=== PATIENT | male | born 1970 | race Caucasian/White ===

== ENCOUNTER 2017-04-27 15:12 | Outpatient (CLI) ==
--- NOTE | 2017-04-27 15:47 | DI ---
EXAM: Fourth digit of the left hand three views HISTORY: Injury, pain FINDINGS: Bone and joint structures appear normal. There is no displaced fracture or joint disloca tion seen. General bone density and soft tissues are within normal limits. IMPRESSION: Findings within normal limits.
== END 2017-04-27 15:13 | disposition home or self-care (01) ==
LOC: RAD 15:12
PROVIDERS: ATTEND Family Medicine
DX: S66.912D Strain of unspecified muscle, fascia and tendon at wrist and hand level, left hand, subsequent encounter (principal)

== ENCOUNTER 2017-06-14 11:43 | Emergency (ER) ==
[2017-06-14 11:50] VITALS: BP 169/111; TEMP 97.8; BMI 50.1
--- NOTE | 2017-06-14 12:24 | DI ---
Exam: Right knee four view. HISTORY: Injury. Findings: Four images of the right knee are submitted. These demonstrate no acute fracture or disl ocation. There is no osseous erosion or radiodense foreign body. There is mild narrowing of the med ial compartment. There is minimal patellar spurring. There is no suprapatellar effusion. There is no focal soft tissue swelling. Impressions: Mild degenerative findings in the right knee with no acute fracture or dislocation.
--- NOTE | 2017-06-14 12:29 | ED.PDOC ---
General ED Provider: Dr. LIZ LINDQUIST-ER Chief Complaint: Knee Pain/Injury Stated Complaint: i twisted my knee yesterday and i felt a pop Time Seen by Physician: 11:50 Mode of Arrival: Walk-In Information Source: Patient Exam Limitations: No limitations Primary Care Provider: LIZ LINDQUIST Nursing and Triage Documentation Reviewed and Agree: Yes Musculoskeletal Complaint Exam - Knee Pain Complaint/Exam Mechanism of Injury: Reports: Trauma Onset/Duration: 24hrs Symptoms Are: Still present Onset of Pain: Reports: Immediate Initial Severity: Mild Current Severity: Moderate Location: Reports: Discrete Character: Reports: Dull, Aching, Stiffness Aggravating: Reports: Movement, Weight bearing, Prolonged standing, Stairs Associated Signs and Symptoms: Denies: Swelling, Redness, Bruising, Fever, Weakness, Numbness, Tingling Able to Bear Weight: Yes Septic Arthritis Risk Factors: Reports: None Gout Risk Factors: Reports: >40 years old, Male Knee Findings: Present: Ligamentous instability, Tenderness, Limited range of motion Tenderness: Present: Joint Brock Test Positive: No Lida Test Positive: No Differential Diagnoses: Internal Derangement, Sprain, Strain Review of Systems - Review Of Systems Constitutional: Reports: No symptoms Eyes: Reports: No symptoms Ears, Nose, Mouth, Throat: Reports: No symptoms Respiratory: Reports: No symptoms Cardiac: Reports: No symptoms GI: Reports: No symptoms : Reports: No symptoms Musculoskeletal: Reports: Joint pain Skin: Reports: No symptoms Neurological: Reports: No symptoms Endocrine: Reports: No symptoms Hematologic/Lymphatic: Reports: No symptoms All Other Systems: Reviewed and Negative Past Medical History - Past Medical History Endocrine: Reports: Unknown Cardiovascular: Reports: Unknown Respiratory: Reports: Unknown Hematological: Reports: Unknown Gastrointestinal: Reports: Unknown Genitourinary: Reports: Unknown Neuro/Psych: Reports: Unknown Musculoskeletal: Reports: Unknown Cancer: Reports: Unknown - Surgical History General Surgical History: Reports: Unknown - Family History Family History: Reports: Unknown - Social History Smoking Status: Former smoker Hx Substance Use: No Alcohol Screening: Occasionally Lives: With family Physical Exam - Physical Exam Appearance: Well-appearing, No pain distress, Well-nourished Eyes: KRISTEN, EOMI, Conjunctiva clear ENT: Ears normal, Nose normal, Oropharynx normal Neck: Supple Respiratory: Airway patent, Breath sounds clear, Breath sounds equal, Respirations nonlabored Cardiovascular: RRR, Pulses normal, No rub, No murmur GI/: Soft, Nontender, No masses, Bowel sounds normal, No Organomegaly Musculoskeletal: Limited ROM Skin: Warm, Dry, Normal color Neurological: Sensation intact, Motor intact, Reflexes intact, Cranial nerves intact, Alert, Oriented Psychiatric: Affect appropriate, Mood appropriate Interpretation - Radiology Interpretation Radiology Interpretation By: ED Physician Radiology Results: Negative Critical Care Note - Critical Care Note Total Time (mins): 0 Course - Course Orders, Labs, Meds: Orders Category Date Time Status BRITTNEY [ED BRITTNEY WRAP] .ONCE EMERGENCY 06/14/17 12:26 Active KNEE, RIGHT 4 VIEWS Stat RADS 06/14/17 11:56 Completed Vital Signs: Temp Pulse Resp BP Pulse Ox 06/14/17 11:44 97.8 F 69 16 169/111 H 98 Departure - Departure Time of Disposition: 12:30 Disposition: HOME SELF-CARE Discharge Problem: Injury of knee Instructions: Swollen Knee Joint (ED) Condition: Good Pt referred to PMD for follow-up: Yes Additional Instructions: use crutches--knee brace---norco 7.5mg q 4hs prn pain #15--call my office tomorrow to arrange mri of knee Allergies/Adverse Reactions: Allergies No Known Allergies Allergy (Unverified 06/14/17 11:50) Home Medications: Ambulatory Orders Meloxicam [Mobic] 7.5 mg PO DAILY PRN 06/14/17 Disposition Discussed With: Patient
== END 2017-06-14 12:44 | disposition home or self-care (01) ==
LOC: ED 11:43
DX: S89.91XA Unspecified injury of right lower leg, initial encounter (principal); X50.1XXA Overexertion from prolonged static or awkward postures, initial encounter
CPT/HCPCS: 99283

== ENCOUNTER 2018-05-04 22:22 | Outpatient (CLI) | END 2018-05-04 23:03 | disposition left against medical advice (07) | LOC: AMBL 22:22 | PROVIDERS: ATTEND Internal Medicine Geriatric Medicine | DX: S89.92XA Unspecified injury of left lower leg, initial encounter (principal); S00.12XA Contusion of left eyelid and periocular area, initial encounter; R04.0 Epistaxis; R11.10 Vomiting, unspecified; S00.81XA Abrasion of other part of head, initial encounter; V29.9XXA Motorcycle rider (driver) (passenger) injured in unspecified traffic accident, initial encounter ==

== ENCOUNTER 2018-06-29 18:42 | Emergency (ER) ==
[2018-06-29 18:51] VITALS: BP 154/83; TEMP 98.8; BMI 49.3
--- NOTE | 2018-06-29 19:00 | ED.PDOC ---
General ED Provider: Dr. LIZ LINDQUIST-ER Chief Complaint: Extremity Swelling/Pain Stated Complaint: my leg is red-zuleyka got cellulitis--zuleyka had it before Time Seen by Physician: 18:58 Mode of Arrival: Wheelchair Information Source: Patient Exam Limitations: No limitations Primary Care Provider: LIZ LINDQUIST Nursing and Triage Documentation Reviewed and Agree: Yes Does patient meet sepsis criteria?: No System Inflammatory Response Syndrome: Not Applicable Sepsis Protocol: For patient's 13 years and over: Temp is 96.8 and below OR 101 and greater Pulse >90 BPM Resp >20/minute Acutely Altered Mental Status Are patient's symptoms suggestive of a new infection, such as: -Pneumonia -Skin, Soft Tissue -Endocarditis -UTI -Bone, Joint Infection -Implantable Device -Acute Abdominal Infection -Wound Infection -Meningitis -Blood Stream Catheter Infection -Unknown Skin Complaint Exam - Skin Rash/Itching Complaint/Exam Onset/Duration: 2 days Symptoms Are: Still present Initial Severity: Mild Current Severity: Mild Location: left leg below the knee Potential Exposures: Reports: Unknown Aggravating: Reports: None Alleviating: Reports: None Associated Signs and Symptoms: Denies: Difficulty breathing, Fever, Chills Skin Findings: Present: Maculae Differential Diagnoses: Other Review of Systems - Review Of Systems Constitutional: Reports: No symptoms Eyes: Reports: No symptoms Ears, Nose, Mouth, Throat: Reports: No symptoms Respiratory: Reports: No symptoms Cardiac: Reports: No symptoms GI: Reports: Blood streaked bowels : Reports: No symptoms, Hematuria Musculoskeletal: Reports: No symptoms Skin: Reports: Rash Neurological: Reports: No symptoms Endocrine: Reports: No symptoms Hematologic/Lymphatic: Reports: No symptoms All Other Systems: Reviewed and Negative Past Medical History - Past Medical History Previously Healthy: No Endocrine: Reports: Unknown Cardiovascular: Reports: Unknown Respiratory: Reports: Unknown Hematological: Reports: Unknown Gastrointestinal: Reports: Unknown Genitourinary: Reports: Unknown Neuro/Psych: Reports: Unknown Musculoskeletal: Reports: Unknown Cancer: Reports: Unknown - Surgical History General Surgical History: Reports: Unknown - Family History Family History: Reports: Unknown - Social History Smoking Status: Former smoker Hx Substance Use: No Alcohol Screening: Occasionally - Immunizations Tetanus Shot up to Date: Yes Physical Exam - Physical Exam Appearance: Well-appearing Eyes: KRISTEN ENT: Ears normal Neck: Supple Respiratory: Airway patent, Breath sounds clear, Breath sounds equal, Respirations nonlabored Cardiovascular: RRR GI/: Soft Musculoskeletal: Normal strength, ROM intact, No edema, No calf tenderness Skin: Warm, Dry, Normal color Neurological: Sensation intact, Motor intact, Reflexes intact, Cranial nerves intact, Alert, Oriented Psychiatric: Affect appropriate, Mood appropriate Critical Care Note - Critical Care Note Total Time (mins): 0 Course - Course Vital Signs: Temp Pulse Resp BP Pulse Ox 06/29/18 18:43 98.8 F 83 20 154/83 H 96 Departure - Departure Time of Disposition: 19:00 Disposition: HOME SELF-CARE Discharge Problem: Cellulitis Qualifiers: Site of cellulitis: extremity Site of cellulitis of extremity: lower extremity Laterality: left Qualified Code(s): L03.116 - Cellulitis of left lower limb Instructions: Cellulitis (ED) Condition: Good Pt referred to PMD for follow-up: Yes IPMP verified?: No Additional Instructions: clindamycin 300mg tid x 7 days #21-see me sunday in follow up Allergies/Adverse Reactions: Allergies No Known Allergies Allergy (Unverified 06/29/18 18:53) Home Medications: Ambulatory Orders Escitalopram Oxalate [Lexapro] 10 mg PO DAILY 06/18/18 Hydrocodone/Acetaminophen [Hydrocodone-Acetamin 7.5-325] 1 each PO 3-4XD PRN Meloxicam [Mobic] 15 mg PO DAILY 06/18/18 Aspirin 81 mg PO DAILY 06/29/18 Ranitidine HCl 150 mg PO DAILY PRN 06/29/18 Disposition Discussed With: Patient, Family
== END 2018-06-29 19:08 | disposition home or self-care (01) ==
LOC: ED 18:42
DX: L03.116 Cellulitis of left lower limb (principal)
CPT/HCPCS: 99282

== ENCOUNTER 2024-07-30 13:13 | Observation (INO) ==
--- NOTE | 2024-07-30 13:45 | ED.PDOC ---
General ED Provider: Dr. JAMIA DALLAS MD Chief Complaint: Shortness of Air Stated Complaint: Patient is a 53-year-old male that reported to the emergency department for shortness of breath during laying down at night to sleep for the past 2 nights. Patient states he has a history of A-fib but had an ablation several years ago. Patient stated that since that time he has not had any issues with atrial fibrillation or repeat rate issues. Patient denied any chest pain or dizziness. Patient stated that nothing helps except propping himself up at night to sleep. Patient states that laying flat makes his shortness of breath worse. Patient states that he is on lisinopril/hydrochlorothiazide 10- 12.5 mg for hypertension. Patient also has a prescription furosemide 20 mg daily. Patient states that he takes his medication as prescribed by his primary care physician. Patient denies any current shortness of breath, nausea, vomiting, diarrhea, dizziness, syncope, loss consciousness, abdominal pain, or any other acute symptoms not currently mentioned in the HPI. Patient's vital signs show tachycardia with a rate between 111 bpm 225 bpm, blood pressure is currently 192/112 with a MAP of 126. Patient's O2 sat is 96% on room air. Patient is alert and oriented to person, place, and time. Time Seen by Provider: 07/30/24 13:15 Mode of Arrival: Walk-In Information Source: Patient Exam Limitations: No limitations Primary Care Provider: JENNA OLIVEIRA APRN Nursing and Triage Documentation Reviewed and Agree: Yes Does Patient Take Opioids?: No Is Patient Opioid Naive?: No What is Opioid Naive?: *Opioid Naive implies the patient is not already taking opioids or not chronically receiving opioids on a daily basis. *PRN dosing is not "usually" associated with tolerance. *Patients are at higher risk of over-sedation and aspiration. Is Patient Opioid Tolerant?: No What is Opioid Tolerant?: *Opioid Tolerance implies less than the expected response to an opioid. *Acquired tolerance is defined by the patient taking 60mg of oral morphine daily (or equianalgesic dose of another opioid) for 1 week or more. *Often associated with chronic pain. *May take more than usual dose to achieve desired pain control. Review of Systems Review Of Systems Constitutional: Reports No symptoms Eyes: Reports No symptoms Ears, Nose, Mouth, Throat: Reports No symptoms Respiratory: Reports Orthopnea Cardiac: Reports Palpitations GI: Reports No symptoms : Reports No symptoms Musculoskeletal: Reports No symptoms Skin: Reports No symptoms Neurological: Reports No symptoms Endocrine: Reports No symptoms Hematologic/Lymphatic: Reports No symptoms All Other Systems: Reviewed and Negative [facility] Medical History (Updated 07/30/24 @ 14:33 by JAMIA DALLAS MD) History of Clostridioides difficile colitis Step 1 labs and c. diff eval. Was on dificid in past for infection. history [address] abd/pelvis. Diverticular disease is on Ddx. Renal pathology, stone, and other causes for abdominal pain. No fever, no blood in stool. Delayed the cologuard until diarrhea is better. F/U in 1 week by phone to discuss labs. Z86.19 - Personal history of other infectious and parasitic diseases (ICD- 10) Abdominal cramping RESOLVED as of 06/05/24. NO more pain, no more diarrhea. R10.9 - Unspecified abdominal pain (ICD-10) Diarrhea RESOLVED as of 06/05/24. NO more pain, no more diarrhea. R19.7 - Diarrhea, unspecified (ICD-10) Family History Mother Diabetes FATHER Cardiac disease Hypertension SISTER Cardiac disease Other Heart problem Surgical History knee surgery History of ear, nose, and throat (ENT) surgery Z98.890 - Other specified postprocedural states (ICD-10) Status post appendectomy Z90.49 - Acquired absence of other specified parts of digestive tract (ICD- 10) Status post endovenous radiofrequency ablation (RFA) of saphenous vein Z98.890 - Other specified postprocedural states (ICD-10) Physical Exam Physical Exam Appearance: Reports Well-appearing, No pain distress and Well-nourished Ill-appearing: None Pain Distress: None Eyes: Reports KRISTEN, EOMI and Conjunctiva clear ENT: Reports Ears normal, Nose normal and Oropharynx normal Neck: Supple Respiratory: Reports Airway patent, Breath sounds clear, Breath sounds equal and Respirations nonlabored Cardiovascular: Reports Pulses normal, No rub, No murmur, Irregular rhythm (Cardiac auscultation showed irregular irregular heart rhythm.) and Tachycardia (Apical pulse of 120 bpm.) GI/: Reports Soft, Nontender, No masses, Bowel sounds normal and No Organomegaly Musculoskeletal: Reports Normal strength, ROM intact, No edema and No calf tenderness Skin: Reports Warm, Dry and Normal color Neurological: Reports Sensation intact, Motor intact, Reflexes intact, Cranial nerves intact, Alert and Oriented Psychiatric: Reports Affect appropriate and Mood appropriate Course Course 07/30/24 13:40 07/30/24 13:40 Orders, Labs, Meds: Lab Review 07/30/24 07/30/24 13:36 13:40 WBC 7.93 RBC 6.51 H Hgb 16.1 Hct 50.9 MCV 78.2 L MCH 24.7 L MCHC 31.6 L RDW Coeff of Danyelle 14.6 Plt Count 262 Immature Gran % (Auto) 0.3 Neut % (Auto) 59.7 Lymph % (Auto) 23.2 [place] % (Auto) 10.5 H Eos % (Auto) 5.8 Baso % (Auto) 0.5 Neut # (Auto) 4.7 Lymph # (Auto) 1.8 [place] # (Auto) 0.8 Eos # (Auto) 0.5 Baso # (Auto) 0.0 Immature Gran # (Auto) 0.0 Sodium 136.4 Potassium 3.88 Chloride 102.6 Carbon Dioxide 28.8 Anion Gap 8.88 BUN 14.9 Creatinine 0.99 Estimated GFR (MDRD) 79.00 BUN/Creatinine Ratio 15.05 Glucose 117.8 H Lactic Acid 0.80 Calcium 8.81 Total Bilirubin 1.41 H AST 36.2 ALT 24.3 Alkaline Phosphatase 71.9 Troponin I < 0.012 NT-Pro-B Natriuret Pep 175 Total Protein 7.76 Albumin 4.19 Globulin 3.57 Albumin/Globulin Ratio 1.17 SARS CoV-2 RNA Rapid DIONICIO Negative Orders Category Date Time Status EKG-(ED ONLY) Stat CARDIO 07/30/24 13:32 Completed EKG-(ED ONLY) Stat CARDIO 07/30/24 14:25 Completed ED NUTRITIONAL CHEMIST APPLIED .ONCE EMERGENCY 07/30/24 13:32 Active CBC W/ AUTO DIFF Stat LAB 07/30/24 13:40 Completed COMPREHENSIVE METABOLIC PANEL Stat LAB 07/30/24 13:40 Completed LACTIC ACID Stat LAB 07/30/24 13:40 Completed NT-PROBNP(ED) Stat LAB 07/30/24 13:40 Completed SARS COV-2 RNA RAPID DIONICIO Stat LAB 07/30/24 13:36 Completed TROPONIN I Stat LAB 07/30/24 13:40 Completed Diltiazem HCl [Cardizem Inj] Meds 07/30/24 13:32 Discontinued 38 mg IVP ONCE STA Enoxaparin Sodium [Lovenox] Meds 07/30/24 13:46 Discontinued 100 mg SUBCUT ONCE STA Flecainide Acetate [Tambocor] Meds 07/30/24 14:21 Discontinued 300 mg PO ONCE STA CHEST, 1V AP ONLY Stat RADS 07/30/24 13:32 Taken Medications Discontinued Medications Generic Name Dose Route Start Last Admin Trade Name Freq PRN Reason Stop Dose Admin Diltiazem HCl 38 mg 07/30/24 13:32 07/30/24 14:05 Diltiazem Hcl Inj 25 Mg/5 Ml Vial IVP 07/30/24 13:33 38 mg ONCE STA Administration Enoxaparin Sodium 100 mg 07/30/24 13:46 07/30/24 14:00 Enoxaparin Sodium 100 Mg/Ml Syr SUBCUT 07/30/24 13:47 100 mg ONCE STA Administration Flecainide Acetate 300 mg 07/30/24 14:21 Flecainide Acetate 100 Mg Tablet PO 07/30/24 14:22 ONCE STA Vital Signs: Temp Pulse Resp BP Pulse Ox 07/30/24 13:28 98.1 F 115 H 16 200/106 H 97 BERRY Risk Score BERRY Risk Score: Risk Score Odds of by 30D 0 0.1 (0.1-0.2) 1 0.3 (0.2-0.3) 2 0.4 (0.3-0.5) 3 0.7 (0.6-0.9) 4 1.2 (1.0-1.5) 5 2.2 (1.9-2.6) 6 3.0 (2.5-3.6) 7 4.8 (3.8-6.1) Physician Progress Note: Patient is a 53-year-old male that reported to the emergency department for shortness of breath during laying down at night to sleep for the past 2 nights. Patient states he has a history of A-fib but had an ablation several years ago. Patient stated that since that time he has not had any issues with atrial fibrillation or repeat rate issues. Patient denied any chest pain or dizziness. Patient stated that nothing helps except propping himself up at night to sleep. Patient states that laying flat makes his shortness of breath worse. Patient states that he is on lisinopril/hydrochlorothiazide 10-12.5 mg for hypertension. Patient also has a prescription furosemide 20 mg daily. Patient states that he takes his medication as prescribed by his primary care physician. Patient denies any current shortness of breath, nausea, vomiting, diarrhea, dizziness, syncope, loss consciousness, abdominal pain, or any other acute symptoms not currently mentioned in the HPI. Patient's vital signs show tachycardia with a rate between 111 bpm 225 bpm, blood pressure is currently 192/112 with a MAP of 126. Patient's O2 sat is 96% on room air. Patient is alert and oriented to person, place, and time. -Will order EKG, chest x-ray, BMP, troponin, and baseline labs. -Can EKG which showed atrial flutter with variable AV block. No acute ST elevations noted. Ventricular rates of 111 bpm. This was interpreted by the ER physician. -Patient's rate on the monitor varies from 111 up over 125 bpm. -Will rate control the patient with IV Cardizem 38 mg (standard of care for IV Cardizem and atrial flutter/atrial fibrillation 0.25 mg/kg initial bolus). -Will anticoagulate with subcu Lovenox 100 mg. -Per up-to-date standard of care for atrial fibrillation/atrial flutter pharmacological cardioversion will give flecainide 300 mg for person over 70 kg once. -Repeat EKG shows atrial flutter with 4-1 AV conduction. No acute ST elevations noted. Ventricular rate is now 82 bpm. This is interpreted by the ER physician. -Patient's rate is controlled. -Patient's vital signs have improved after the IV Cardizem to blood pressure 151/102, heart rate 82 bpm, O2 sat 96% on room air. Respiratory rate 16. Patient is alert and oriented to person, place, and time. -(1430) spoke to the hospitalist (Martin Estrella NP) at [facility] and told her of the patient's current atrial flutter and current treatment which he is now rate controlled. I also told her that the patient has been given p.o. flecainide 300 mg for rhythm control. She agrees to accept the patient for observation in the hospital. Patient's vital signs are currently stable and this has also been relayed to the hospitalist. Discharge Plan Discharge Patient Disposition: PLACED OBSERVATION Discharge Problem: Atrial flutter with rapid ventricular response, Hypertensive emergency Did you review [place] [employer] for ALL controlled substances?: Not Applicable ED Provider: JAMIA DALLAS Condition: Stable
[2024-07-30 13:46] LABS: BASOPHILS % (AUTO) 0.5 % (0.0-3.0); EOSINOPHILS # (AUTO) 0.5 K/ul (0.0-0.7); EOSINOPHILS % (AUTO) 5.8 % (0.0-7.0); HEMATOCRIT 50.9 % (42.0-52.0); HEMOGLOBIN 16.1 g/dl (14.0-18.0); IMMATURE GRANULOCYTE % (AUTO) 0.3 % (0.0-5.0); LYMPHOCYTES # (AUTO) 1.8 K/uL (0.60-3.4); LYMPHOCYTES % (AUTO) 23.2 (10.0-50.0); MEAN CORPUSCULAR HEMOGLOBIN 24.7 pg (27.0-31.0); MEAN CORPUSCULAR HGB CONC 31.6 (31.8-35.4); MEAN CORPUSCULAR VOLUME 78.2 fl (80.0-94.0); MONOCYTES # (AUTO) 0.8 K/uL (0.4-2.0); MONOCYTES % (AUTO) 10.5 (0-10); NEUTROPHILS # (AUTO) 4.7 K/ul (2.0-6.9); NEUTROPHILS % (AUTO) 59.7 % (42.2-75.2); PLATELET COUNT 262 10^3/uL (140-440); RDW COEFFICIENT OF VARIATION 14.6 % (11.6-14.8); RED BLOOD COUNT 6.51 10^6/ul (4.70-6.10); WHITE BLOOD COUNT 7.93 K/ul (4.2-10.2)
[2024-07-30 13:58] LABS: SARS COV-2 RNA RAPID NAAT NEGATIVE (NEGATIVE)
[2024-07-30] MEDS: LOVENOX SUBCUT STA (14:00)
[2024-07-30] MEDS: CARDIZEM INJ IVP STA (14:05)
[2024-07-30 14:10] LABS: ALANINE AMINOTRANSFERASE 24.3 U/L (0-50); ALBUMIN 4.19 g/dL (3.5-5.0); ALKALINE PHOSPHATASE 71.9 U/L (38-126); ASPARTATE AMINO TRANSFERASE 36.2 U/L (17-59); BILIRUBIN,TOTAL 1.41 mg/dL (0.2-1.3); BLOOD UREA NITROGEN 14.9 mg/dL (9-20); CALCIUM 8.81 mg/dL (8.4-10.2); CARBON DIOXIDE 28.8 mmol/L (22-30.0); CHLORIDE 102.6 mmol/L (98-107); CREATININE 0.99 mg/dL (0.60-1.10); GLUCOSE 117.8 mg/dL (74-106); POTASSIUM 3.88 mmol/L (3.5-5.1); SODIUM 136.4 mmol/L (134.5-145); TOTAL PROTEIN 7.76 g/dL (6.3-8.2)
[2024-07-30 14:21] LABS: TROPONIN I < 0.012 ng/ml (0.0000-0.120)
--- NOTE | 2024-07-30 14:38 | DI ---
EXAM: CHEST RADIOGRAPH (1 VIEW) TECHNIQUE: Frontal Chest Radiograph. HISTORY: Shortness of breath COMPARISON: None. FINDINGS: Lines, Tubes, Devices: None Lungs and Pleura: No focal consolidation. No pleural effusion. No pneumothorax. Cardiac silhouette: Normal. Bones: No acute abnormality. IMPRESSION: No acute radiographic abnormality.
[2024-07-30] MEDS: TAMBOCOR PO STA (14:39)
[2024-07-30] MEDS ORDERED: TYLENOL PO PRN (14:45)
[2024-07-30 16:02] VITALS: BMI 52.7
[2024-07-30] MEDS: CARDIZEM PO SCH (17:16)
--- NOTE | 2024-07-30 21:51 | PCM ---
Date of Service Date Seen by Provider: 07/30/24 Admit Day/Time Admission Date: 07/30/24 Reason for Admission Chief Complaint: A-FLUTTER WITH RVR, HYPERTENSIVE EMERGENCY Hospital Provider Hospital Provider: CRISTO VALDEZ, [facility] Primary Care Physician Primary Care Physician: JENNA OLIVEIRA APRN History of Present Illness History of Present Illness: 53 yo male with pmh of Afib s/p ablation 10 years ago, HTN, and lymphedema presented to the ER with complaints of shortness of breath when laying down at night for the past 2 days. Patient states that he has not taken his BP medication over the last week and then noticed approx. 2 nights ago that he was waking up unable to breathe and unable to lay flat. He had an ablation done 10 years ago and has not required any medications since then. States he has felt palpitations intermittently but they have resolved on their own. Denies any chest pain, palpitations, sob, dizziness or other symptoms at this time. EKG in ER showed A flutter. Rate was running around 115 initiaily. He was given a dose of cardizem which brought his rate down to the 80s. He was then given a dose of PO flecanide. Admitted to med/surg observation. Case Discussed With Case Discussed With: Patient's case was discussed with the ER Physicians, Dr. Ford. [facility] Medical History History of Clostridioides difficile colitis Step 1 labs and c. diff eval. Was on dificid in past for infection. history [address] abd/pelvis. Diverticular disease is on Ddx. Renal pathology, stone, and other causes for abdominal pain. No fever, no blood in stool. Delayed the cologuard until diarrhea is better. F/U in 1 week by phone to discuss labs. Z86.19 - Personal history of other infectious and parasitic diseases (ICD- 10) Abdominal cramping RESOLVED as of 06/05/24. NO more pain, no more diarrhea. R10.9 - Unspecified abdominal pain (ICD-10) Diarrhea RESOLVED as of 06/05/24. NO more pain, no more diarrhea. R19.7 - Diarrhea, unspecified (ICD-10) Surgical History knee surgery History of ear, nose, and throat (ENT) surgery Z98.890 - Other specified postprocedural states (ICD-10) Status post appendectomy Z90.49 - Acquired absence of other specified parts of digestive tract (ICD- 10) Status post endovenous radiofrequency ablation (RFA) of saphenous vein Z98.890 - Other specified postprocedural states (ICD-10) Family History Mother Diabetes FATHER Cardiac disease Hypertension SISTER Cardiac disease Other Heart problem Social History Smoking and tobacco status: Never smoker Allergies Allergies Allergy/AdvReac Type Severity Reaction Status Date / Time No Known Allergies Allergy Verified 07/30/24 13:36 Current Medications Home Medications furosemide 20 mg tablet See Rx Instructions .Route .COMPLEX #90 tabs 03/24/24 [Rx Confirmed 07/30/24 Last Taken 07/30/24] safety needles 18 gauge x 1" #50 ea 04/25/24 [Rx Confirmed 07/30/24 Last Taken Unknown] safety needles 23 gauge x 1" (BD SafetyGlide Needle) #50 ea 04/25/24 [Rx Confirmed 07/30/24 Last Taken Unknown] testosterone cypionate 200 mg/mL intramuscular oil 100 mg (0.5 mL) IM QWEEK #10 mL 06/05/24 [Rx Confirmed 07/30/24 Last Taken 07/30/24] lisinopril 10 mg-hydrochlorothiazide 12.5 mg tablet 1 tab PO DAILY #30 tabs 06/10/24 [Rx Confirmed 07/30/24 Last Taken 07/30/24] Home Acetaminophen (Acetaminophen 325 Mg Tablet) 650 mg PO Q4H PRN PRN Reason: Mild Pain Diltiazem HCl (Diltiazem Hcl 60 Mg Tablet) 60 mg PO Q6HR JONATHAN Last Admin: 07/30/24 17:16 Dose: 60 mg Furosemide (Furosemide 20 Mg Tablet) 20 mg PO BIDAC2 JONATHAN Hydrochlorothiazide (Hydrochlorothiazide 25 Mg Tablet) 12.5 mg PO DAILY JONATHAN Lisinopril (Lisinopril 10 Mg Tablet) 10 mg PO DAILY JONATHAN Discontinued Medications Diltiazem HCl (Diltiazem Hcl Inj 25 Mg/5 Ml Vial) 38 mg IVP ONCE STA Stop: 07/30/24 13:33 Last Admin: 07/30/24 14:05 Dose: 38 mg Enoxaparin Sodium (Enoxaparin Sodium 100 Mg/Ml Syr) 100 mg SUBCUT ONCE STA Stop: 07/30/24 13:47 Last Admin: 07/30/24 14:00 Dose: 100 mg Flecainide Acetate (Flecainide Acetate 100 Mg Tablet) 300 mg PO ONCE STA Stop: 07/30/24 14:22 Last Admin: 07/30/24 14:39 Dose: 300 mg Non-Formulary Medication (Lisinopril-Hydrochlorothiazide) 1 tab PO DAILY JONATHAN Opioid Naive vs. Tolerant Does Patient Take Opioids?: No Is Patient Opioid Naive?: Yes What is Opioid Naive?: *Opioid Naive implies the patient is not already taking opioids or not chronically receiving opioids on a daily basis. *PRN dosing is not "usually" associated with tolerance. *Patients are at higher risk of over-sedation and aspiration. Is Patient Opioid Tolerant?: No What is Opioid Tolerant?: *Opioid Tolerance implies less than the expected response to an opioid. *Acquired tolerance is defined by the patient taking 60mg of oral morphine daily (or equianalgesic dose of another opioid) for 1 week or more. *Often associated with chronic pain. *May take more than usual dose to achieve desired pain control. Review of Systems Constitutional: Reports No symptoms Head: Reports Normocephalic Eyes: Reports No symptoms Ears: Reports No symptoms Nose: Reports No symptoms Mouth: Reports No symptoms Throat: Reports No symptoms Cardiovascular: Reports Orthopnea Respiratory: Reports No symptoms Gastrointestinal: Reports No symptoms Genitourinary: Reports No Symptoms Musculoskeletal: Reports No symptoms Endocrine: Reports No symptoms Hematology: Reports No symptoms Immunology: Reports No symptoms Neurological: Reports No symptoms Psychiatric: Reports No symptoms Physical examination Most Recent Vital Signs: Most Recent Vital Signs Temperature 98.4 F 07/30/24 17:53 Temperature Source Temporal Artery Scan 07/30/24 17:53 Temperature Source Temporal Artery Scan 07/30/24 13:28 Pulse Rate 74 07/30/24 17:53 Respiratory Rate 20 07/30/24 17:53 Blood Pressure 137/88 07/30/24 17:53 Blood Pressure Mean 104 07/30/24 17:53 Blood Pressure Right Arm 140/104 07/30/24 15:29 Blood Pressure Location Right Arm 07/30/24 17:53 Blood Pressure Position Sitting 07/30/24 17:53 O2 Sat by Pulse Oximetry 97 07/30/24 17:53 Oxygen Delivery Method Room Air 07/30/24 21:00 Height 5 ft 7 in 07/30/24 15:29 Weight 152.6 kg 07/30/24 15:29 Telemetry Type Remote Telemetry 07/30/24 19:00 Telemetry Monitoring Continues 07/30/24 19:00 Telemetry Heart Rate 86 07/30/24 19:00 EKG QRS Interval 0.04 L 07/30/24 19:00 Telemetry Strip Reading A-FLUTTER 07/30/24 19:00 Appearance: Positive No Apparent Distress, Alert and Oriented x3 and Obese Skin: Positive Warm and Good Turgor HEENT: Positive Normocephalic and PERRLA Neck: Positive Supple and Midline Trachea Chest/Lungs: Positive Symmetrical With Equal Breath Sounds, Clear to Auscultation Bilaterally and Good Air Movement all 4 Lung [place] Heart: Positive Pulses Normal, Irregular Rhythm, No S3 Auscultated and No S4 Auscultated GI/: Positive Soft, Nontender, Bowel Sounds Normal and No Distention Musculoskeletal: Positive Normal Gait and Station Extremities: Positive Edema (+3-4 pitting BLE), Intact Peripheral Pulses, Stable Joints Without Laxity and Good ROM in All Joints Neurological: Positive Sensation Intact, Motor intact, Alert, Oriented and Muscle Strength 5/5 in Upper and Lower Extremities Bilaterally Labs This Visit Labs This Visit: Labs This Visit 07/30/24 07/30/24 13:36 13:40 WBC 7.93 RBC 6.51 H Hgb 16.1 Hct 50.9 MCV 78.2 L MCH 24.7 L MCHC 31.6 L RDW Coeff of Danyelle 14.6 Plt Count 262 Immature Gran % (Auto) 0.3 Neut % (Auto) 59.7 Lymph % (Auto) 23.2 [place] % (Auto) 10.5 H Eos % (Auto) 5.8 Baso % (Auto) 0.5 Neut # (Auto) 4.7 Lymph # (Auto) 1.8 [place] # (Auto) 0.8 Eos # (Auto) 0.5 Baso # (Auto) 0.0 Immature Gran # (Auto) 0.0 Sodium 136.4 Potassium 3.88 Chloride 102.6 Carbon Dioxide 28.8 Anion Gap 8.88 BUN 14.9 Creatinine 0.99 Estimated GFR (MDRD) 79.00 BUN/Creatinine Ratio 15.05 Glucose 117.8 H Lactic Acid 0.80 Calcium 8.81 Total Bilirubin 1.41 H AST 36.2 ALT 24.3 Alkaline Phosphatase 71.9 Troponin I < 0.012 NT-Pro-B Natriuret Pep 175 Total Protein 7.76 Albumin 4.19 Globulin 3.57 Albumin/Globulin Ratio 1.17 SARS CoV-2 RNA Rapid DIONICIO Negative Imaging Imaging: EXAM: CHEST RADIOGRAPH (1 VIEW) TECHNIQUE: Frontal Chest Radiograph. HISTORY: Shortness of breath COMPARISON: None. FINDINGS: Lines, Tubes, Devices: None Lungs and Pleura: No focal consolidation. No pleural effusion. No pneumothorax. Cardiac silhouette: Normal. Bones: No acute abnormality. IMPRESSION: No acute radiographic abnormality. EKG Interpretation EKG Interpretation: Atrial flutter, Rate 88 Review Statement Review Statement: I have independently reviewed and interpreted the labs/EKGs/imaging that were ordered by the ER provider. I have reviewed all outside records that are available currently in our EMR including imaging/notes/labs from previous visits. Plan Plan: 1. Atrial flutter with RVR - RVR resolved, cardizem 60 mg PO Q6H - dc with XR, xarelto, echo ordered, telemetry 2. Hypertensive Urgency - resolved at this time, resume home medications 3. Lymphedema - chronic, continue lasix DVT Prophylaxis: Xarelto Time Spent: Greater than 80 minutes spent with patient, 50% of the time spent with this patient was devoted to counseling and coordination of care. Advanced Care Plannin minutes spent discussing advance care planning. Disposition: Admit to: Med/Surg Observation Full Code Discussed Plan of Care with Dr. Jamee Green. Medications Medication Orders: Medications Ordered Category Date Time Status Acetaminophen [Tylenol] Meds 07/30/24 14:45 Active 650 mg PO Q4H PRN Diltiazem HCl [Cardizem] Meds 07/30/24 18:00 Active 60 mg PO Q6HR Furosemide [Lasix Tab] Meds 07/31/24 06:00 Ordered 20 mg PO BIDAC2 lisinopril-hydrochlorothiazide Meds 07/31/24 09:00 Ordered 1 tab PO DAILY
[2024-07-31] MEDS: LASIX TAB PO SCH (05:45)
[2024-07-31 05:55] LABS: BASOPHILS % (AUTO) 0.5 % (0.0-3.0); EOSINOPHILS # (AUTO) 0.4 K/ul (0.0-0.7); EOSINOPHILS % (AUTO) 4.8 % (0.0-7.0); HEMOGLOBIN 15.7 g/dl (14.0-18.0); IMMATURE GRANULOCYTE % (AUTO) 0.2 % (0.0-5.0); LYMPHOCYTES # (AUTO) 2.4 K/uL (0.60-3.4); LYMPHOCYTES % (AUTO) 28.7 (10.0-50.0); MEAN CORPUSCULAR HGB CONC 31.4 (31.8-35.4); MEAN CORPUSCULAR VOLUME 79.5 fl (80.0-94.0); MONOCYTES # (AUTO) 0.9 K/uL (0.4-2.0); NEUTROPHILS # (AUTO) 4.8 K/ul (2.0-6.9); NEUTROPHILS % (AUTO) 55.8 % (42.2-75.2); PLATELET COUNT 236 10^3/uL (140-440); RDW COEFFICIENT OF VARIATION 14.4 % (11.6-14.8); RED BLOOD COUNT 6.29 10^6/ul (4.70-6.10); WHITE BLOOD COUNT 8.51 K/ul (4.2-10.2)
[2024-07-31 06:17] LABS: ALANINE AMINOTRANSFERASE 24.5 U/L (0-50); ALBUMIN 4.05 g/dL (3.5-5.0); ALKALINE PHOSPHATASE 88.1 U/L (38-126); ASPARTATE AMINO TRANSFERASE 29.5 U/L (17-59); BILIRUBIN,TOTAL 1.01 mg/dL (0.2-1.3); BLOOD UREA NITROGEN 17.2 mg/dL (9-20); CALCIUM 8.75 mg/dL (8.4-10.2); CARBON DIOXIDE 31.7 mmol/L (22-30.0); CHLORIDE 101.6 mmol/L (98-107); CREATININE 1.11 mg/dL (0.60-1.10); GLUCOSE 113.3 mg/dL (74-106); POTASSIUM 4.4 mmol/L (3.5-5.1); SODIUM 137.5 mmol/L (134.5-145); TOTAL PROTEIN 7.58 g/dL (6.3-8.2)
[2024-07-31] MEDS: ZESTRIL PO SCH (08:52)
[2024-07-31] MEDS: HYDROCHLOROTHIAZIDE PO SCH (08:52)
[2024-07-31] MEDS ORDERED: ZESTRIL PO SCH (09:00)
[2024-07-31 10:08] VITALS: BP 116/74; PULSE 69; RESP 18; TEMP 97.6
--- NOTE | 2024-07-31 11:47 | ECHO2D ---
Date of Exam: 07/31/2024 Room #: 119 Ordering Physician: HOSPITALIST - Sherry FULTON APRN, PCP - Nava OLIVEIRA APRN Reason for Echo: ATRIAL FIBRILLATION WITH ABLATION, HYPERTENSION, DIABETES MELLITUS M-Mode Normal Adult Results LV Dimensions Normal Adult Results AoV Opening excursions >1.6 >1.6 LVEDD-base- 3.5-5.8 5.7 Ao root dimensions 2.0-3.7 3.3 LVESD-base- 3.1-4.6 L. Atrium dimensions 1.9-3.8 4.8 Post. Wall thickness 0.8-1.1 1.4 IV septum (thickness) 0.7-1.2 1.4 Post. Wall excursion 0.72-1.3 NORMAL Septal motion 0.8 Systolic motion R. Ventricular cavity 1.5-2.0 NORMAL LVEF 60% 55% Paradoxical septal wall motion NORMAL 2-D : 2-D M Mode Echocardiogram was performed using apical four chamber and left parasternal long and short axis views. Mitral, tricuspid and aortic valves appear to be normal. Contractility of the left ventricle seems to be normal, so is the cavity size. ENLARGED LEFT ATRIAL CAVITY SIZE. Aortic root appears to be normal. There is no pericardial effusion. There is no thrombus noted in the left ventricle or left atrial cavity. M-MODE: MV: NORMAL AV: NORMAL TV: NORMAL PV: NORMAL CHAMBER SIZE: ENLARGED LEFT ATRIAL CAVITY / BORDERLINE LEFT VENTRICLE CAVITY. WALL MOTION: STIFF SEPTUM PERICARDIUM: NORMAL INTERPRETATION: 1. LEFT VENTRICULAR HYPERTROPHY MODERATE WITH ENLARGED LEFT ATRIAL CAVITY. 2. VALVES NORMAL. 3. STIFF SEPTUM WITH EJECTION FRACTION 55%. 4. LEFT VENTRICLE CAVITY BORDERLINE. MTDD
--- NOTE | 2024-07-31 12:18 | DCSUM ---
Admission Date Admission Date: 07/30/24 Discharge Date Discharge Date: 07/31/24 Admission Diagnosis Admission Diagnosis: 1. Atrial flutter with RVR 2. Hypertensive Urgency 3. Lymphedema Discharge Diagnosis Discharge Diagnosis: 1. Atrial flutter with RVR - RVR resolved 2. Hypertensive Urgency - Resolved 3. Lymphedema - Chronic, stable Hospital Provider Hospital Provider: CRISTO VALDEZ, [facility] [place] Primary Care Physician Primary Care Physician: JENNA OLIVEIRA APRN Summary of History and Physical Summary of History and Physical: 53 yo male with pmh of Afib s/p ablation 10 years ago, HTN, and lymphedema presented to the ER with complaints of shortness of breath when laying down at night for the past 2 days. Patient states that he has not taken his BP medication over the last week and then noticed approx. 2 nights ago that he was waking up unable to breathe and unable to lay flat. He had an ablation done 10 years ago and has not required any medications since then. States he has felt palpitations intermittently but they have resolved on their own. Denies any chest pain, palpitations, sob, dizziness or other symptoms at this time. EKG in ER showed A flutter. Rate was running around 115 initiaily. He was given a dose of cardizem which brought his rate down to the 80s. He was then given a dose of PO flecanide. Admitted to med/surg observation. Hospital Course Subjective: During stay, patient remained out of RVR. A flutter still present. Asymptomatic. Tolerated cardizem well. D/c with 180 mg extended release daily and xarelto 20 mg. Patient requested xarelto due to taking it in the past. Echo completed and showed LVH, stiff septum, and EF 55%. Instructed to continue lasix as previously prescribed. Did have high blood pressures. Adjusted lisinopril to 20 mg from 10 mg. Patient reported unable to tolerate due to headache. Switched at d/c to losartan 50 mg with HCTZ 12.5 daily. Has follow-up apt on next week and plans to have PCP adjust if this doesn't work for him. Instructed to be compliant with medications due to harmful effects to heart and rest of body. Appearance: Pleasant, No Apparent Distress and Alert HEENT: MMM, Supple and No JVD CVS: No Murmur Abdomen: Soft, Non-Tender and No Distention Respiratory: No Dyspnea Extremities: Other (+3-4 pitting edema BLE, chronic) Vital Signs: Most Recent Vital Signs Temperature 97.6 F 07/31/24 10:00 Temperature Source Temporal Artery Scan 07/31/24 10:00 Temperature Source Temporal Artery Scan 07/30/24 13:28 Pulse Rate 69 07/31/24 10:00 Respiratory Rate 18 07/31/24 10:00 Blood Pressure 116/74 07/31/24 10:00 Blood Pressure Mean 88 07/31/24 10:00 Blood Pressure Right Arm 140/104 07/30/24 15:29 Blood Pressure Location Left Arm 07/31/24 10:00 Blood Pressure Position Sitting 07/31/24 10:00 O2 Sat by Pulse Oximetry 98 07/31/24 10:00 Oxygen Delivery Method Room Air 07/31/24 12:00 Height 5 ft 7 in 07/30/24 15:29 Weight 152.6 kg 07/30/24 15:29 Telemetry Type Remote Telemetry 07/31/24 07:00 Telemetry Monitoring Continues 07/31/24 07:00 Telemetry Heart Rate 71 07/31/24 07:00 EKG QRS Interval 0.08 07/31/24 07:00 Telemetry Strip Reading Atrial Flutter 07/31/24 07:00 Lab Results Last 24 Hours: 07/31/24 07/30/24 07/30/24 05:33 13:40 13:36 WBC 8.51 7.93 RBC 6.29 H 6.51 H Hgb 15.7 16.1 Hct 50.0 50.9 MCV 79.5 L 78.2 L MCH 25.0 L 24.7 L MCHC 31.4 L 31.6 L RDW Coeff of Danyelle 14.4 14.6 Plt Count 236 262 Immature Gran % (Auto) 0.2 0.3 Neut % (Auto) 55.8 59.7 Lymph % (Auto) 28.7 23.2 [place] % (Auto) 10.0 10.5 H Eos % (Auto) 4.8 5.8 Baso % (Auto) 0.5 0.5 Neut # (Auto) 4.8 4.7 Lymph # (Auto) 2.4 1.8 [place] # (Auto) 0.9 0.8 Eos # (Auto) 0.4 0.5 Baso # (Auto) 0.0 0.0 Immature Gran # (Auto) 0.0 0.0 Sodium 137.5 136.4 Potassium 4.40 3.88 Chloride 101.6 102.6 Carbon Dioxide 31.7 H 28.8 Anion Gap 8.60 8.88 BUN 17.2 14.9 Creatinine 1.11 H 0.99 Estimated GFR (MDRD) 70.00 79.00 BUN/Creatinine Ratio 15.49 15.05 Glucose 113.3 H 117.8 H Lactic Acid 0.80 Calcium 8.75 8.81 Total Bilirubin 1.01 1.41 H AST 29.5 36.2 ALT 24.5 24.3 Alkaline Phosphatase 88.1 71.9 Troponin I < 0.012 NT-Pro-B Natriuret Pep 175 Total Protein 7.58 7.76 Albumin 4.05 4.19 Globulin 3.53 3.57 Albumin/Globulin Ratio 1.14 1.17 SARS CoV-2 RNA Rapid DIONICIO Negative Discharge Instructions Discharge Planning: Discharge Planning > 40 minutes If patient is discharged with left ventricular systolic dysfunction: NO Discharged with a beta shameka? [] If no, why not? [] Discharged with an nomi/arb? [] If no, why not? [] Diagnosis: Atrial flutter, Hypertensive Urgency Diet: Cardiac (low salt) Activity: as tolerated Follow-up with PCP next week. Medication changes: Xarelto 20 mg daily with evening meal (blood thinner) Losartan 50 mg - HCTZ 12.5 mg daily (blood pressure) Cardizem 180 mg daily (Atrial flutter) Discharge Medications: Medications at Discharge (Home Meds & RX) furosemide 20 mg tablet See Rx Instructions .Route .COMPLEX #90 tabs 03/24/24 safety needles 18 gauge x 1" #50 ea 04/25/24 safety needles 23 gauge x 1" (BD SafetyGlide Needle) #50 ea 04/25/24 testosterone cypionate 200 mg/mL intramuscular oil 100 mg (0.5 mL) IM QWEEK #10 mL 06/05/24 lisinopril 10 mg-hydrochlorothiazide 12.5 mg tablet 1 tab PO DAILY #30 tabs 06/10/24 Discharge Plan Discharge Discharge Orders: Discharge Patient (ONCE); Ordered 07/31/24 Ordered By: KATHY FULTON Activity Restrictions/Additional Instructions: Diagnosis: Atrial flutter, Hypertensive Urgency Diet: Cardiac (low salt) Activity: as tolerated Follow-up with PCP next week. Medication changes: Xarelto 20 mg daily with evening meal (blood thinner) Losartan 50 mg - HCTZ 12.5 mg daily (blood pressure) Cardizem 180 mg daily (Atrial flutter) Instructions: Atrial Flutter (GEN) Care Plan Goals: Problem: Elevated blood pressure Goal: Medically managed blood pressure Instructions: Monitor blood pressure as needed Medication for elevated blood pressure as directed Monitor for signs/symptoms of elevated blood pressure Problem: Noncompliance Goal: Compliant with therapeutic plan Instructions: Assess anxiety level Assess coping skills Express feelings as needed Refer to community services Patient Disposition: HOME SELF-CARE Prescriptions: New losartan-hydrochlorothiazide 50-12.5 mg tablet 1 tab PO DAILY Qty: 30 0RF diltiazem HCl [Cardizem CD] 180 mg capsule,extended release 24hr 180 mg PO DAILY Qty: 30 0RF Xarelto 20 mg tablet 20 mg PO QPM Qty: 30 0RF Rx Instructions: must administer with evening meal Continued furosemide 20 mg tablet See Rx Instructions .ROUTE .COMPLEX Qty: 90 2RF Dose Instruction: TAKE ONE TABLET TWICE DAILY GENERIC FOR LASIX Rx Instructions: TAKE ONE TABLET TWICE DAILY GENERIC FOR LASIX (DME) BD SafetyGlide Needle 23 gauge x 1" needle See Rx Instructions .ROUTE Qty: 50 5RF Rx Instructions: For testosterone administration. (DME) safety needles 18 gauge x 1" needle See Rx Instructions .ROUTE Qty: 50 5RF Rx Instructions: As directed DRaw up Testosterone. testosterone cypionate 200 mg/mL oil 100 mg IM QWEEK Qty: 10 1RF Discontinued lisinopril-hydrochlorothiazide 10-12.5 mg tablet 1 tab PO DAILY Qty: 30 0RF Did you review [place] RESPIRATORY MEDICINE PHYSICIAN for ALL controlled substances?: No Discussed opioids are addictive and Narcan is available by prescription or from pharmacy.: No Condition: Stable Referrals: JENNA OLIVEIRA APRN [Primary Care Provider] - 08/07/24 8:15 am
[2024-07-31] MEDS ORDERED: XARELTO PO SCH (17:00)
== END 2024-07-31 13:10 | disposition home or self-care (01) ==
LOC: MEDSURG B 13:13 → ED 13:13 → MEDSURG B 15:35
PROVIDERS: ADMIT Hospitalist; ATTEND Nurse Practitioner Family
DX: I16.0 Hypertensive urgency; Z20.822 Contact with and (suspected) exposure to COVID-19; I89.0 Lymphedema, not elsewhere classified; Z51.81 Encounter for therapeutic drug level monitoring; Z79.899 Other long term (current) drug therapy; I48.92 Unspecified atrial flutter; Z91.199 Patient's noncompliance with other medical treatment and regimen due to unspecified reason; I10 Essential (primary) hypertension; R06.02 Shortness of breath